=== PATIENT | male | born 1950 | race Caucasian/White ===

== ENCOUNTER → 2016-10-18 | Outpatient (CLI) | payer BC ==
[2016-10-18 11:30] LABS: CHLORIDE,CL 106 mmol/L (98-110); SODIUM,NA 141 mmol/L (136-146)
== END ==
LOC: MW.CHFP 10:35
PROVIDERS: ATTEND Emergency Medicine
DX: I10 Essential (primary) hypertension (principal); E11.9 Type 2 diabetes mellitus without complications; E78.5 Hyperlipidemia, unspecified
CPT/HCPCS: 36415; 80053; 80061; 82044; 83036

== ENCOUNTER → 2016-10-28 | Outpatient (CLI) | payer BC ==
--- NOTE | 2016-10-31 09:47 | CR ---
EXAMINATION: Lumbar spine HISTORY: Low back pain COMPARISON: MRI dated 05/04/2016 TECHNIQUE: AP lateral, flexion and extension images obtained. FINDINGS: There is mild wedging of the L1 vertebral body. Otherwise the vertebral body heights and d isc spaces appear grossly maintained. No fracture or acute osseous abnormality. Mild marginal osteop hytes are noted. Alignment appears unchanged with flexion and extension. The SI joints are symmetric . Facet hypertrophic changes are noted. IMPRESSION: 1. Mild chronic compression deformity at L1. 2. Otherwise mild degenerative changes without acute findings.
== END ==
LOC: MW.DI 13:45
PROVIDERS: ATTEND Neurological Surgery
DX: M54.5 Low back pain (principal)
CPT/HCPCS: 72110; 72110-26

== ENCOUNTER → 2016-11-28 | Outpatient (CLI) | payer BC ==
[2016-11-28 11:30] LABS: CHLORIDE,CL 110 mmol/L (98-110); SODIUM,NA 139 mmol/L (136-146)
== END ==
LOC: MW.CHFP 10:32 → MW.LAB 10:32
PROVIDERS: ATTEND Emergency Medicine
DX: Z01.812 Encounter for preprocedural laboratory examination (principal); I10 Essential (primary) hypertension
CPT/HCPCS: 36415; 80053; 82652; 85025

== ENCOUNTER → 2016-11-29 | Outpatient (CLI) | payer BC | LOC: MW.CHFP 14:38 | PROVIDERS: ATTEND Emergency Medicine | DX: Z01.818 Encounter for other preprocedural examination (principal) | CPT/HCPCS: 93005 ==

== ENCOUNTER 2022-11-04 09:37 | Day surgery (SDC) | payer MEDICARE, OTHER ==
[~2022-11-04 09:37] MED LIST: Dexmedetomidine 200 MCG/2 ML SDV ONE; Lactated Ringers 1,000 ML IV SCH; Propofol 200 MG/20 ML SDV ONE; Water For Injection, Sterile 20 ML ONE
[2022-11-04] MEDS ORDERED: Propofol 200 MG/20 ML SDV ONE ×2 (11:08→11:43)
[2022-11-04] MEDS ORDERED: fentaNYL 100 MCG/2 ML SDV ONE (11:13)
[2022-11-04] MEDS ORDERED: Lactated Ringers 1,000 ML IV SCH (12:00)
== END 2022-11-04 13:10 | disposition home or self-care (01) ==
LOC: MW.SDS 09:37
PROVIDERS: ATTEND Surgery
DX: D12.2 Benign neoplasm of ascending colon (principal); D12.4 Benign neoplasm of descending colon; D12.5 Benign neoplasm of sigmoid colon; K64.9 Unspecified hemorrhoids; M19.90 Unspecified osteoarthritis, unspecified site; I48.91 Unspecified atrial fibrillation; N40.0 Benign prostatic hyperplasia without lower urinary tract symptoms; I25.10 Atherosclerotic heart disease of native coronary artery without angina pectoris; J44.9 Chronic obstructive pulmonary disease, unspecified; E11.22 Type 2 diabetes mellitus with diabetic chronic kidney disease; I12.9 Hypertensive chronic kidney disease with stage 1 through stage 4 chronic kidney disease, or unspecified chronic kidney disease; I35.1 Nonrheumatic aortic (valve) insufficiency; N18.9 Chronic kidney disease, unspecified; E11.42 Type 2 diabetes mellitus with diabetic polyneuropathy; K21.9 Gastro-esophageal reflux disease without esophagitis; E78.5 Hyperlipidemia, unspecified; G47.33 Obstructive sleep apnea (adult) (pediatric); G25.81 Restless legs syndrome; Z88.8 Allergy status to other drugs, medicaments and biological substances; Z88.1 Allergy status to other antibiotic agents; Z79.4 Long term (current) use of insulin; Z79.01 Long term (current) use of anticoagulants; Z79.899 Other long term (current) drug therapy; Z78.9 Other specified health status
CPT/HCPCS: 45380; 45385; J2704; J3010; J7120; 00811; J3490